=== PATIENT | female | born 1955 | race Caucasian/White ===

== ENCOUNTER → 2019-05-17 08:35 | Day surgery (SDC) | payer MEDICARE ==
[~2019-05-17 08:35] MED LIST: Buffered Lidocaine 1% SYRIN* 1 ML/SYRINGE INTRADERM ONE; Dexamethasone IV* 4 MG/ML 1 ML (4 MG) ONE; DiMENhydriNATE IV* 50 MG/ML VIAL IV PUSH PRN; Famotidine IV* 10 MG/ML 2 ML (20 mg) IV ONE; Famotidine IV* 10 MG/ML 2 ML (20 mg) ONE; KETAMINE HCL* 50 MG/ML 10 ML VIAL ONE; Lactated Ringers 1000 ML Bag* 1,000 ML IV SCH; Lidocaine 2% PF * 5 ML VIAL ONE; Midazolam* 1 MG/ML 5 ML VIAL (5 MG) ONE; Naloxone* 0.4 MG/ML 1 ML VIAL IV PRN; Ondansetron INJ* 2 MG/ML VIAL ONE; Propofol* 10 MG/ML 20 ML BTL ONE; fentaNYL* 50 MCG/ML 2 ML VIAL (100 MCG VIAL) ONE
[2019-05-17 12:52] VITALS: BP 142/97
--- NOTE | 2019-05-18 21:25 | PRO ---
CC: Dr. Melyssa Cooney * COLONOSCOPY REPORT: DATE OF PROCEDURE: 05/17/19 - [facility] PRIMARY CARE PHYSICIAN: Dr. Melyssa Cooney. INDICATION FOR PROCEDURE: Family history of colon cancer and personal history of polyps. PROCEDURE PERFORMED: Complete colonoscopy to the cecum. MEDICATIONS GIVEN: Please see anesthesia record. DESCRIPTION OF PROCEDURE: After the colonoscopy procedure including the risks, benefits, and alteratives with the risks not limited to perforation, surgery, missed lesions, and/or were explained to the patient, a written informed consent was obtained. IV medication was given and a rectal exam was performed. The rectal exam was unremarkable. The adult Olympus colonoscope was then inserted into the patient's rectum and advanced very carefully through the entirety of the colon into the cecal base. Cecal base was carefully inspected and normal in appearance. The terminal ileal valve was identified and normal in appearance. A photograph was taken of the cecal cap. The preparation was good. The colon was quite tortuous requiring multiple loop reductions and placing the patient in the supine position, deep splenic pressure was helpful at achieving cecal and colonic intubation. Over the next 7 minutes, the scope was carefully withdrawn inspecting the mucosa. The mucosa was normal in appearance. On return to the rectum, direct views were normal. On retroflexion , internal and external hemorrhoids were appreciated. The scope was then removed from the patient. She tolerated the procedure well. She returned to the recovery room in stable condition. IMPRESSION: 1. Complete colonoscopy of the cecum. 2. Good prep. 3. Tortuous colon, but normal. 4. Internal and external hemorrhoids. RECOMMENDATIONS: Repeat colonoscopy in 5 years time with the anesthesia assistance. [id number]/[facility] #: [id number] BERNAR[place]
== END | disposition home or self-care (01) ==
LOC: OR 08:35
PROVIDERS: ATTEND Internal Medicine Gastroenterology
DX: Z12.11 Encounter for screening for malignant neoplasm of colon (principal); Z09 Encounter for follow-up examination after completed treatment for conditions other than malignant neoplasm; Z86.010 Personal history of colon polyps; K59.00 Constipation, unspecified; Z80.0 Family history of malignant neoplasm of digestive organs; K59.03 Drug induced constipation; K64.8 Other hemorrhoids
CPT/HCPCS: J1100; J2250; J2405; J2704; J3010